=== PATIENT | female | born 1960 | race Caucasian/White ===

== ENCOUNTER → 2025-09-07 13:55 | Outpatient (REF) | payer BC, SELFPAY | LOC: RCS 13:55 | PROVIDERS: ATTENDING PHYSICIAN Internal Medicine Cardiovascular Disease; FAMILY PHYSICIAN Family Medicine | DX: I34.0 Nonrheumatic mitral (valve) insufficiency (principal); R42 Dizziness and giddiness | CPT/HCPCS: 93306 ==